=== PATIENT | female | born 2000 | race African-American/Black ===

== ENCOUNTER 2023-02-18 03:11 | Emergency (ER) | payer OTHER ==
[2023-02-18 03:39] VITALS: BP 107/71; PULSE 88; RESP 20; TEMP 98; BMI 45.0
[2023-02-18] MEDS ORDERED: MAG HYDROX/AL HYDROX/SIMETH 30 ML UNIT-DOSE CUP PO ONE (04:03)
[2023-02-18] MEDS ORDERED: ONDANSETRON *ODT* 4 MG TABLET SL ONE (04:03)
[2023-02-18] MEDS ORDERED: ACETAMINOPHEN 325 MG TABLET (FP) PO ONE (04:04)
[2023-02-18] MEDS ORDERED: MAG HYDROX/AL HYDROX/SIMETH 30 ML UNIT-DOSE CUP ONE (04:05)
[2023-02-18] MEDS ORDERED: ACETAMINOPHEN 325 MG TABLET (FP) ONE (04:05)
[2023-02-18] MEDS ORDERED: ONDANSETRON *ODT* 4 MG TABLET ONE (04:08)
[2023-02-18 04:47] LABS: EPI CELLS 27 /uL (0-25.1); HCG,QUALITATIVE URINE Negative; HYALINE CASTS 1 /uL (0-3.1); URINE APPEARANCE CLEAR; URINE BACTERIA 441 /uL (0-1359); URINE BILIRUBIN NEGATIVE (NEGATIVE); URINE COLOR YELLOW; URINE GLUCOSE (UA) NEGATIVE (NEGATIVE); URINE KETONE TRACE (NEGATIVE); URINE LEUK ESTERASE 1+ (NEGATIVE); URINE NITRITE NEGATIVE (NEGATIVE); URINE PROTEIN NEGATIVE (NEGATIVE); URINE RBC 44 /uL (0-23.9); URINE WBC 40 /uL (0-25.8)
[2023-02-18] MEDS ORDERED: SODIUM CHLORIDE 0.9% 500 ML INFUS.BAG IV ONE (04:49)
[2023-02-18 05:48] LABS: BASO % 0.8 % (0-2.0); EOS % 1.6 % (0-4.5); HEMOGLOBIN 11.2 GM/dL (10.7-15.3); LYMPH % 46.4 % (8-40); MCH 26.8 pg (25.7-33.7); MCHC 32.1 g/dl (32.0-36.0); MEAN CELL VOLUME 83.4 fl (80-96); MEAN PLT VOLUME 8.8 fl (7.5-11.1); MONO % 9.8 % (3.8-10.2); NEUT % 41.4 % (42.8-82.8); PLATELET COUNT 279 10^3/uL (134-434); RDW 14.3 % (11.6-15.6); WHITE BLOOD COUNT 8.7 K/mm3 (4.0-10.0)
[2023-02-18 05:55] LABS: POTASSIUM 3.6 mmol/L (3.5-5.1)
[2023-02-18 05:57] LABS: CALCIUM 8.9 mg/dL (8.5-10.1)
[2023-02-18 05:58] LABS: ALBUMIN 3.6 g/dl (3.4-5.0); BLOOD UREA NITROGEN 18.6 mg/dL (7-18)
[2023-02-18 06:01] LABS: CREATININE 1.2 mg/dL (0.55-1.3)
[2023-02-18 06:02] LABS: BILIRUBIN,TOTAL 0.1 mg/dL (0.2-1)
[2023-02-18 06:03] LABS: TOT PROT 7.6 g/dl (6.4-8.2)
== END 2023-02-18 06:24 | disposition home or self-care (01) ==
LOC: JER 03:11
DX: R07.9 Chest pain, unspecified (principal); R19.7 Diarrhea, unspecified; N39.0 Urinary tract infection, site not specified; R11.0 Nausea; Z20.822 Contact with and (suspected) exposure to COVID-19
CPT/HCPCS: 0241U-QW; 36415; 80053; 81003; 84703; 85025; 87086; 93005; 93010; 99284-25; Q0162

== ENCOUNTER 2024-03-31 12:26 | Emergency (ER) | payer OTHER ==
[2024-03-31 12:46] VITALS: BMI 45.1
[2024-03-31] MEDS ORDERED: ACETAMINOPHEN INJECTION 100 ML ONE (13:00)
[2024-03-31] MEDS: ACETAMINOPHEN 1000 MG/100 ML BAG IVPB ONE (13:30)
[2024-03-31] MEDS: SODIUM CHLORIDE 0.9% 500 ML INFUS.BAG IV ONE (13:30)
[2024-03-31 13:40] LABS: BASO % 0.6 % (0-2.0); EOS % 0.5 % (0-4.5); HEMATOCRIT 40.7 % (32.4-45.2); HEMOGLOBIN 13.3 GM/dL (10.7-15.3); LYMPH % 35.3 % (8-40); MCH 28.8 pg (25.7-33.7); MCHC 32.7 g/dl (32.0-36.0); MEAN CELL VOLUME 88.2 fl (80-96); MEAN PLT VOLUME 7.8 fl (7.5-11.1); MONO % 7.2 % (3.8-10.2); NEUT % 56.4 % (42.8-82.8); PLATELET COUNT 281 10^3/uL (134-434); RBC 4.62 M/mm3 (3.60-5.2); WHITE BLOOD COUNT 9.5 K/mm3 (4.0-10.0)
[2024-03-31 14:06] LABS: POTASSIUM 4.3 mmol/L (3.5-5.1)
[2024-03-31 14:11] LABS: ALBUMIN 4.1 g/dl (3.4-5.0); BLOOD UREA NITROGEN 8.8 mg/dL (7-18); CALCIUM 9.6 mg/dL (8.5-10.1)
[2024-03-31 14:14] LABS: BILIRUBIN,TOTAL 0.3 mg/dL (0.2-1); CREATININE 0.7 mg/dL (0.55-1.3)
[2024-03-31 14:15] LABS: TOT PROT 8.5 g/dl (6.4-8.2)
[2024-03-31 14:51] LABS: HIV INTERPRETATION NEGATIVE (NEGATIVE)
[2024-03-31] MEDS ORDERED: KETOROLAC TROMETHAMINE 30 MG/1 ML VIAL ONE (14:57)
[2024-03-31] MEDS: KETOROLAC TROMETHAMINE 30 MG/1 ML VIAL IVPUSH ONE (14:59)
[2024-03-31 15:03] LABS: EPI CELLS 20 /uL (0-25.1); HYALINE CASTS 0 /uL (0-3.1); PH,URINE 6.5 (5.0-8.0); URINE APPEARANCE CLEAR; URINE BACTERIA 565 /uL (0-1359); URINE BILIRUBIN NEGATIVE (NEGATIVE); URINE COLOR YELLOW; URINE GLUCOSE (UA) NEGATIVE (NEGATIVE); URINE KETONE TRACE (NEGATIVE); URINE LEUK ESTERASE NEGATIVE (NEGATIVE); URINE NITRITE NEGATIVE (NEGATIVE); URINE PROTEIN 1+ (NEGATIVE); URINE RBC 49 /uL (0-23.9); URINE WBC 8 /uL (0-25.8)
[2024-03-31 16:59] VITALS: BP 147/88; PULSE 89; RESP 18; TEMP 98.2
== END 2024-03-31 16:59 | disposition home or self-care (01) ==
LOC: JER 12:26
PROC: 3E033NZ Introduction of Analgesics, Hypnotics, Sedatives into Peripheral Vein, Percutaneous Approach (ICD-10-PCS; principal; 2024-03-31)
PROC: 3E0333Z Introduction of Anti-inflammatory into Peripheral Vein, Percutaneous Approach (ICD-10-PCS; 2024-03-31)
DX: N83.201 Unspecified ovarian cyst, right side (principal); K59.00 Constipation, unspecified; R10.84 Generalized abdominal pain; R14.0 Abdominal distension (gaseous)
CPT/HCPCS: 36415; 74177-TC; 80053; 81003; 83690; 84703; 85025; 87389; 99285-25; J0131; Q9967